=== PATIENT | male | born 2005 | race Caucasian/White ===

== ENCOUNTER 2023-10-01 20:42 | Emergency (ER) | payer SELFPAY ==
[~2023-10-01] VITALS: Ht 177.8 cm; Wt 71.0 kg
[2023-10-01 20:49] VITALS: O2SAT 99
[2023-10-01] MEDS: SODIUM CHLORIDE 0.9% 1,000 ML IV ONE (21:35)
[2023-10-01 21:49] LABS: BASOPHILS % 0.4 % (0.0-2.0); EOSINOPHILS % 1.4 % (0.0-5.0); HEMATOCRIT. 44.3 % (42.0-52.0); HEMOGLOBIN. 15.1 g/dL (14.0-18.0); LYMPHOCYTES % 18.1 % (20.0-50.0); MEAN CORPUSCULAR HEMOGLOBIN 30.2 pg (28.0-32.0); MEAN CORPUSCULAR HGB CONC 34.1 g/dL (31.0-37.0); MEAN CORPUSCULAR VOLUME 88.5 fL (80.0-94.0); MONOCYTES % 4.2 % (2.0-8.0); NEUTROPHILS % 75.9 % (40.0-76.0); PLATELET 292 x1000/uL (130-400); RED CELL DISTRIBUTION WIDTH 12.8 % (11.6-14.6); WHITE BLOOD COUNT 11.4 x1000/uL (4.5-11.0)
[2023-10-01 21:59] LABS: ALANINE AMINOTRANSFERASE 12 IU/L (10-49); ALBUMIN 4.6 g/dL (3.2-4.8); ASPARTATE AMINOTRANSFERASE 22 IU/L (<34); BILIRUBIN TOTAL 0.5 mg/dL (0.1-1.0); CALCIUM 8.8 mg/dL (8.7-10.4); CARBON DIOXIDE 25 mEq/L (21-32); CHLORIDE 103 mEq/L (98-107); GLUCOSE 166 mg/dL (70-105); POTASSIUM 3.2 mEq/L (3.5-5.1); PROTEIN TOTAL 7.2 g/dL (6.0-8.3); SODIUM 138 mEq/L (136-145); TROPONIN I HIGH SENSITIVITY 9 ng/L (3.0-53); UREA NITROGEN BLOOD 10 mg/dL (9-23)
[2023-10-01 23:06] VITALS: BP 129/74; PULSE 96; RESP 14; TEMP 98.4
== END 2023-10-01 23:07 | disposition home or self-care (01) ==
LOC: ER 20:42
DX: F12.929 Cannabis use, unspecified with intoxication, unspecified (principal); Z90.49 Acquired absence of other specified parts of digestive tract
CPT/HCPCS: 99285; 96360; 71045; 80053; 83880; 85025; 84484; 36415; 93005; J7030